=== PATIENT | female | born 1980 | race Caucasian/White ===

== ENCOUNTER 2017-01-17 15:19 | Emergency (ER) | payer OTHER ==
[~2017-01-17] VITALS: Ht 167.6 cm; Wt 76.0 kg
[~2017-01-17 15:19] MED LIST: CEPH-512 PO; GABA-502 PO; OXYC1TAB24 PO; SULF1TAB7 PO; TRAM50TA2 PO
[2017-01-17 15:22] VITALS: BP 122/77; PULSE 104; RESP 16; O2SAT 99
--- NOTE | 2017-01-17 15:31 | ED.REPORT ---
HPI-Dental/Mouth Prob Date of Service Jan 17, 2017 ED Provider: Ivan Garcia MD Pt is a 36 y.o. female who presents to the ED c/o worsening dental pain onset 4 months ago. Pt states that she has been attempting to get into [facility] for several months and they have not had any open appointments. She reports now experiencing associated migraines for which she was prescribed medication by her PCP. Nursing Notes Stated Complaint: TOOTH PAIN Chief Complaint: Dental Nursing Notes Reviewed: Yes Allergies: Coded Allergies: albuterol (Verified Allergy, Mild, 01/17/17) Scheduled Cephalexin (Keflex) 500 Mg Capsule 500 MG PO QID Gabapentin (Gabapentin) 300 Mg Capsule 600 MG PO TID Sulfamethoxazole/Trimeth 800-160 mg (Bactrim DS) 1 Each Tablet 1 TABLET PO BID Sulfamethoxazole/Trimeth 800-160 mg (Bactrim DS) 1 Each Tablet 1 TABLET PO BID Scheduled PRN Tramadol (Tramadol) 50 Mg Tablet 100 MG PO BID PRN PRN For Pain oxyCODONE (oxyCODONE) 5 Mg Capsule 5 MG PO Q4H PRN PRN For Pain oxyCODONE-Acetaminophen 5-325 mg (oxyCODONE-Acetaminophen 5-325 mg) 1 Each Tablet 1-2 TAB PO Q6H PRN PRN For Pain oxyCODONE-Acetaminophen 5-325 mg (oxyCODONE-Acetaminophen 5-325 mg) 1 Each Tablet 1-2 TAB PO Q6H PRN PRN For Pain General Time Seen by MD: 15:31 Chief Complaint Tooth pain Hx Obtained From: Patient Arrived By: Walk-in Onset Occurred: More than a week ago... (4 months) Symptom Duration: Since onset Quality: Painful Radiation: : Does not radiate Severity: Current: Severe Past Medical History Past Medical History Denies Past Surgical History Denies Smoking History Current Every Day Smoker Social History Alcohol Use: Denies alcohol use Drug Use: Denies drug use Ambulatory Status Independent Review of Systems Ears / Nose / Throat: Reports: Toothache Complete sys rev & neg: except as marked. Neurologic: Reports: Headache Physical Exam Initial Vital Signs Vital Signs (First) Date Time Temp Pulse Resp B/P Pulse Ox O2 Delivery O2 Flow Rate FiO2 01/17/17 15:22 36.8 104 16 122/77 99 Room Air Initial VS: Reviewed Head / Eyes: Atraumatic, Normocephalic Abdomen / GI: No distention Extremities: Vascular intact, Neuro intact Skin: Warm, Dry, No cyanosis Neurologic: Alert, Oriented, Nonfocal Psychiatric: Mood/affect normal, Behavior normal, Normal thought content ENT: Airway patent, Mucous membranes moist, Pharynx NL, No facial swelling Dental / Gums: Positive: Dental caries present (tooth 13), Negative: Dental abscess, Dentition poor Neck: Atraumatic General/Constitutional: Awake, Alert, Well appearing, Well developed, Well hydrated, Well nourished, Not toxic appearing Respiratory / Chest: Atraumatic, Breath sounds NL, Breath sounds = bilat, No respiratory distress, No rales, No rhonchi, No wheezing, No retractions, No stridor Cardiovascular: Heart rate NL, Regular rhythm, Heart sounds NL, No gallop, No murmurs, No rubs, Peripheral circulation NL Re-Eval/Medical Decision Med Decision/Clinical Course Pt is a 36 y.o. female who presents to the ED c/o worsening dental pain onset 4 months ago. Pt states that she has been attempting to get into [facility] for several months and they have not had any open appointments. She reports now experiencing associated migraines for which she was prescribed medication by her PCP but has not filled. Patient afebrile stable vital signs and examination as above. Overall presentation consistent with significant dental caries. I see no indication that antibiotics over this time change her course. She needs to see a dentist. I do believe that she is in significant pain and see no evidence of cardiac pain medication abuse in her history. I prescribed a limited supply of oxycodone and she will continue to use ibuprofen.Considered other possible causes of dental pain including periapical abscess, gingivitis, Kyle's angina, sinusitis, and molar impaction but these are unlikely based on the history and exam. Discussed with the patient the low cost clinic resources available and provided list on discharge. Also reviewed precautions for return to the ED and the importance of f/u with a dentist, which she agreed to do. Source of Hx: Old records Re-Evaluation/Progress : Time of Eval: 15:40 Re-Evaluation/Progress Note: Pt physical exam performed. Pt experiences tenderness upon palpation of tooth 13, rest of exam is normal. Counseled Regarding: Diagnosis Discharge & Departure Primary Impression: Dental caries Additional Impression: Pain, dental Disposition: Home Discharge Condition All VS Reviewed: Yes Condition: Stable Patient Instructions: Dental Caries (ED) Additional Instructions: You were seen here today for dental caries. It did not appear that you had an abscess. I recommend that you keep contacting Garcia to schedule an appointment. Please return if you have any new or worsening symptoms or have signs of infection. Thank you for entrusting us with your care today. Narcotic Pain Medicine You have been prescribed a narcotic for pain relief. These drugs are usually combined with acetaminophen (Tylenol#3, Percocet, Darvocet, Anexsia, Vicodin) or aspirin (Empirin#3, Percodan, Synalogs-DC) for increased effect. Narcotics act on the central nervous system to reduce pain; they also impair mental alertness and physical abilities. We advise you not to drink alcohol, drive a car, or operate dangerous equipment when you are taking theses drugs. You can lessen stomach irritation from your medicine by taking it with meals or a full glass of water. Common side effects of narcotics are: Nausea and vomiting, heartburn, consitpation, dizziness, sleepiness, and mood changes. If you have bothersome side effects or symptoms of an allergic reaction (itching, hives, rash), stop taking your medicine and call your doctor or the emergency room right away. Please keep your narcotic medicine well out of the reach of children. Referrals: [facility] GUO (PCP) Aishaibwilbert Attestation Portions of this note were transcribed by Catherine Chappell. I, Dr. Garcia personally performed the history, physical exam and medical decision-making; I reviewed and confirmed the accuracy of the information in the transcribed note. Signed by: Dennis Higgins, 01/17/17 and 1610. copies to: [facility] Beck O MD Jan 17, 2017 15:31 CATHERINE CHAPPELL Jan 17, 2017 15:41
[2017-01-17] MEDS ORDERED: OXYC5CAP4 PO (15:42)
== END 2017-01-17 15:54 | disposition home or self-care (01) ==
LOC: SED 15:19
DX: K02.9 Dental caries, unspecified (principal); K08.89 Other specified disorders of teeth and supporting structures; F17.200 Nicotine dependence, unspecified, uncomplicated; Z88.8 Allergy status to other drugs, medicaments and biological substances

== ENCOUNTER 2017-01-28 19:31 | Emergency (ER) | payer OTHER ==
[~2017-01-28] VITALS: Ht 167.6 cm; Wt 76.4 kg
[~2017-01-28 19:31] MED LIST changes: +OXYC5CAP4 PO
[2017-01-28 19:48] VITALS: BP 144/82; PULSE 111; RESP 20; O2SAT 97
--- NOTE | 2017-01-28 22:22 | ED.REPORT ---
HPI-Dental/Mouth Prob Date of Service Jan 28, 2017 ED Provider: Melissa Hendrix MD Patient is a 36 year old female who presents to the ED with left upper molar pain that has been worsening in severity over the past 4 months. Patient states that the nerve of the tooth is exposed and that it now hurts to brush her teeth. She is barely able to eat or drink. Patient reports associated swelling in her mouth. Patient states that she has been unsuccessful in obtaining a dental appointment over the past 2 months. The patient is prescribed Tramadol, but she states that this medication causes her to have seizure. The patient states that the tooth pain causes her to have migraines and she has needed to use more of her migraine medication than she usually does. Patient reports associated swelling of her mouth. Patient was seen in the ED on 01/17 for this complaint, prescribed narcotic pain medication, and instructed to follow-up at [facility]. She reports taking Ibuprofen, Tylenol, clove oil, and a temporary filling without relief of symptoms. Patient denies a fever or chills. Nursing Notes Stated Complaint: TOOTH PAIN Chief Complaint: Dental Nursing Notes Reviewed: Yes Allergies: Coded Allergies: acetaminophen (Verified Allergy, Mild, 01/28/17) albuterol (Verified Allergy, Mild, 01/17/17) hydrocodone (Verified Allergy, Mild, 01/28/17) Scheduled Cephalexin (Keflex) 500 Mg Capsule 500 MG PO QID Gabapentin (Gabapentin) 300 Mg Capsule 600 MG PO TID Penicillin V Potassium (Penicillin V Potassium) 500 Mg Tablet 500 MG PO QID Sulfamethoxazole/Trimeth 800-160 mg (Bactrim DS) 1 Each Tablet 1 TABLET PO BID Sulfamethoxazole/Trimeth 800-160 mg (Bactrim DS) 1 Each Tablet 1 TABLET PO BID Scheduled PRN Tramadol (Tramadol) 50 Mg Tablet 100 MG PO BID PRN PRN For Pain oxyCODONE (oxyCODONE) 5 Mg Capsule 5 MG PO Q4H PRN PRN For Pain oxyCODONE-Acetaminophen 5-325 mg (oxyCODONE-Acetaminophen 5-325 mg) 1 Each Tablet 1-2 TAB PO Q6H PRN PRN For Pain oxyCODONE-Acetaminophen 5-325 mg (oxyCODONE-Acetaminophen 5-325 mg) 1 Each Tablet 1-2 TAB PO Q6H PRN PRN For Pain General Time Seen by MD: 22:19 Chief Complaint Tooth pain Hx Obtained From: Patient Arrived By: Walk-in Onset Occurred: More than a week ago... (4 months) Symptom Duration: Since onset Quality: Painful Severity: Current: Severe Severity: Maximum: Severe Recent Healthcare: Recent doctor visit Similar Sx Previous: Yes Past Medical History Past Medical History seizures Past Surgical History Denies Smoking History Current Every Day Smoker Social History Alcohol Use: Denies alcohol use Drug Use: Denies drug use Other Social History: Good social support, Local resident Ambulatory Status Independent Review of Systems Review of Systems Note: + mouth swelling Constitutional: Denies: Chills, Fever Ears / Nose / Throat: Reports: Mouth pain, Toothache Complete sys rev & neg: except as marked. Neurologic: Reports: Headache Physical Exam Initial Vital Signs Vital Signs (First) Date Time Temp Pulse Resp B/P Pulse Ox O2 Delivery O2 Flow Rate FiO2 01/28/17 19:48 36.2 111 20 144/82 97 Room Air Initial VS: Reviewed Extremities: Vascular intact, Neuro intact Skin: Warm, Dry, No cyanosis Neurologic: Alert, Oriented, Nonfocal Psychiatric: Mood/affect normal, Behavior normal, Normal thought content ENT: Airway patent, Pharynx NL Soft sublingual and submental spaces. Controlling secretions well. Exquisite tenderness with percussion to the left maxillary premolar with obvious caries to the molar. No fluctuance. Neck: Supple, No swelling, Non-tender General/Constitutional: Awake, Alert, No acute distress Head / Eyes: Atraumatic, Normocephalic, PERRL Respiratory / Chest: Breath sounds NL, Breath sounds = bilat, No respiratory distress, No rales, No rhonchi, No wheezing Cardiovascular: Heart rate NL, Regular rhythm, Heart sounds NL, No murmurs Interpretation & Diagnostics Interpretation & Diagnostics: Urine Test: Negative. Re-Eval/Medical Decision Med Decision/Clinical Course 36-year-old female here with dental pain. Differential diagnosis includes but is not limited to dental abscess versus gingivitis versus dental caries versus cracked tooth. Exam is consistent with dental abscess. Patient was given penicillin and advised to take ibuprofen at home. She is aware and amenable to discharge and will follow up with her dentist. She has been given very strict return precautions. Source of Hx: Old records Re-Evaluation/Progress : Time of Eval: 23:16 Patient Status: Condition improved Re-Evaluation/Progress Note: Patient understands and agrees with the plan to be discharged home. Discharge instructions and follow-up discussed. All questions were addressed. Return to the ED warnings given. Counseled Regarding: Diagnosis, Need for follow-up, When/why to return to ED Discharge & Departure Primary Impression: Dental caries Disposition: Home Discharge Condition All VS Reviewed: Yes Condition: Stable Patient Instructions: Dental Caries (ED) Additional Instructions: You have been prescribed Penicillin for your dental infection, take as directed. Take Ibuprofen 800mg every 8 hours as needed for pain. It is very important that you follow-up with a dentist as soon as possible. Follow-up with your doctor in the next 1-2 days. Return to the Emergency Department if you develop worsening tooth pain, swelling of your mouth or throat, fever, or any other concerning symptoms. Your blood pressure was elevated in the emergency department today. You should follow-up with your primary care physician regarding your high blood pressure. You may need to be started on medication to manage your blood pressure. Referrals: Anatoliy Agrawal DO (PCP) Dennis Attestation Portions of this note were transcribed by Nighat Medina. I, Dr. Hendrix personally performed the history, physical exam and medical decision-making; I reviewed and confirmed the accuracy of the information in the transcribed note. Signed by: Dennis Call, 01/28/2017 [id number] copies to: Anatoliy Agrawal Rebecca A MD Jan 28, 2017 22:22 Nighat Medina Jan 28, 2017 22:40
[2017-01-28] MEDS ORDERED: PENI500T PO (23:08)
== END 2017-01-28 23:50 | disposition home or self-care (01) ==
LOC: SED 19:31
DX: K02.9 Dental caries, unspecified (principal); F17.200 Nicotine dependence, unspecified, uncomplicated; Z88.5 Allergy status to narcotic agent; Z88.6 Allergy status to analgesic agent; Z88.8 Allergy status to other drugs, medicaments and biological substances

== ENCOUNTER 2017-06-19 10:20 | Emergency (ER) | payer OTHER ==
[~2017-06-19] VITALS: Ht 170.2 cm; Wt 76.4 kg
[~2017-06-19 10:20] MED LIST changes: +PENI500T PO
[2017-06-19 10:25] VITALS: BP 134/80; PULSE 122; RESP 18; O2SAT 98
[2017-06-19] MEDS ORDERED: 0.9% Sodium Chloride 1,000 ML IV ONE ×2 (11:28→12:55)
[2017-06-19] MEDS ORDERED: Ondansetron 2 mg/mL 2 mL Inj IVPUSH ONE (11:30)
--- NOTE | 2017-06-19 11:38 | ED.REPORT ---
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 Patient states she was walking in the [place] 3 days ago when she felt a bite on her left lower leg. She brushed it and did not observe an animal or insect. She did note a single puncture wound. She reports that within several hours there was a surrounding area of redness which spread steadily across her lower leg. Last night she noted an area of crusting near the bite which she removed and has since expanded, becoming productive of purulent discharge. Admits to palpitations, tightness in her chest, vomiting which she reports has been typical for her as well as burning with urination which predated the injury. Denies fever, shaking chills, chest pain, shortness of breath, abdominal pain, diarrhea, melena, hematochezia, headache, denies vaginal bleeding/discharge. Denies history of diabetes. 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 Nursing Notes Stated Complaint: SPIDER BITE Chief Complaint: Skin Rash/Abscess Nursing Notes Reviewed: Yes Allergies: Coded Allergies: acetaminophen (Verified Allergy, Mild, 01/28/17) albuterol (Verified Allergy, Mild, 01/17/17) hydrocodone (Verified Allergy, Mild, 01/28/17) Scheduled Cephalexin (Keflex) 500 Mg Capsule 500 MG PO QID Clindamycin (Clindamycin) 300 Mg Capsule 300 MG PO QID Gabapentin (Gabapentin) 300 Mg Capsule 600 MG PO TID Penicillin V Potassium (Penicillin V Potassium) 500 Mg Tablet 500 MG PO QID Sulfamethoxazole/Trimeth 800-160 mg (Bactrim DS) 1 Each Tablet 1 TABLET PO BID Sulfamethoxazole/Trimeth 800-160 mg (Bactrim DS) 1 Each Tablet 1 TABLET PO BID Scheduled PRN Tramadol (Tramadol) 50 Mg Tablet 100 MG PO BID PRN PRN For Pain oxyCODONE (oxyCODONE) 5 Mg Capsule 5 MG PO Q4H PRN PRN For Pain oxyCODONE-Acetaminophen 5-325 mg (oxyCODONE-Acetaminophen 5-325 mg) 1 Each Tablet 1-2 TAB PO Q6H PRN PRN For Pain oxyCODONE-Acetaminophen 5-325 mg (oxyCODONE-Acetaminophen 5-325 mg) 1 Each Tablet 1-2 TAB PO Q6H PRN PRN For Pain General Time Seen by MD: 11:09 Chief Complaint Other (suspected bite) Past Medical History Past Medical History seizures Past Surgical History Denies Smoking History Current Every Day Smoker Social History Alcohol Use: Denies alcohol use Drug Use: Denies drug use Other Social History: Good social support, Local resident Ambulatory Status Independent Review of Systems Review of Systems Note: Negative unless stated otherwise in history of present illness Physical Exam General: Well appearing, well developed, well nourished, no acute distress. Left leg: Left calf notably larger than right, redness and swelling to the mid calf, 1 cm ulcer located on the lateral anterior lower leg. Purulent discharge is noted initially and sampled for culture, once wiped away no additional purulence can be expressed. No area of fluctuance is noted. Range of motion in ankle appears to be limited by swelling. Sensation and brisk capillary refill intact in distal phalanges. DP and PT pulses 2+. Head: Atraumatic, normocephalic. Eyes: No scleral icterus or injection. No discharge. Vision grossly intact. ENT: Voice clear, hearing grossly intact. Respiratory: Regular rate and rhythm. Breath sounds present, clear to auscultation and equal bilaterally. No respiratory distress. No increased work of breathing, speaks in complete sentences. Cardiovascular: Tachycardic with regular rhythm, without murmur, gallop or rub. No pedal edema. Skin: Warm and dry. Neurological: Grossly nonfocal. Psychological: Alert and oriented. Speech appropriate, linear and logical. Behavior appropriate. Initial Vital Signs Vital Signs (First) Date Time Temp Pulse Resp B/P Pulse Ox O2 Delivery O2 Flow Rate FiO2 06/19/17 10:25 37.2 122 18 134/80 98 Room Air Tachycardia Interpretation & Diagnostics Lab Results Interpretation Result Diagram: 06/19/17 1130 06/19/17 1130 Test 06/19/17 11:30 06/19/17 14:13 White Blood Count 8.1th/mm3 (3.8-10.1) Red Blood Count 3.84mil/mm3 (3.90-5.20) Hemoglobin 11.5g/dL (12.0-15.6) Hematocrit 35.0% (35.0-46.0) Mean Corpuscular Volume 91.1fL (81-100) Mean Corpuscular Hemoglobin 29.9pg (27.0-35.0) Mean Corpuscular Hemoglobin Concent 32.9% (32.0-37.0) Red Cell Distribution Width 12.6% (12.3-15.4) Platelet Count 304bil/L (150-400) Neutrophils (%) (Auto) 72.2% (40-74) Lymphocytes (%) (Auto) 18.6% (14-46) Monocytes (%) (Auto) 6.9% (4-12) Eosinophils (%) (Auto) 2.0% (0-5) Basophils (%) (Auto) 0.2% (0-3) Sodium Level 137mEq/L (134-144) Potassium Level 3.8mEq/L (3.5-5.2) Chloride Level 98mEq/L (97-108) Carbon Dioxide Level 27mmol/L (18-29) Blood Urea Nitrogen 12mg/dL (6-20) Creatinine 0.57mg/dL (0.57-1.00) Estimat Glomerular Filtration Rate 173mL/min (>59) Glucose Level 93mg/dL (60-99) Calcium Level 9.2mg/dL (8.5-10.1) Total Bilirubin 1.4mg/dL (0.0-1.2) Aspartate Amino Transf (AST/SGOT) 18U/L (0-50) Alanine Aminotransferase (ALT/SGPT) 14U/L (0-32) Alkaline Phosphatase 81U/L (25-150) Total Creatine Kinase 79U/L (21-215) Creatine Kinase MB 1.5ng/mL (0.0-5.3) Creatine Kinase MB % % (0.0-5.0) Total Protein 7.5g/dL (6.4-8.4) Albumin 3.9g/dL (3.4-5.0) HCG Beta Subunit < 0.500mIU/mL Urine Color Yellow (YELLOW) Urine Appearance Clear (CLEAR,HAZY) Urine pH 6.0 (5.0-8.0) Urine Specific [place] 1.015 (1.003-1.035) Urine Protein Negativemg/dL (NEG,TRACE) Urine Glucose (UA) Negativemg/dL (NEGATIVE) Urine Ketones Negativemg/dL (NEGATIVE) Urine Occult Blood Negative (NEGATIVE) Urine Nitrite Negative (NEGATIVE) Urine Bilirubin Negative (NEGATIVE) Urine Urobilinogen Normalmg/dL (NORMAL) Urine Leukocyte Esterase Negative (NEGATIVE) Urine RBC 0-2/hpf (0-2) Urine WBC 0-5/hpf (0-5) Urine Epithelial Cells Few/hpf (NONE-MOD) Urine Crystals None seen (NONE SEEN) Urine Bacteria Few/hpf (NONE-FEW) Urine Hyaline Casts None/lpf (NONE) Urine Granular Casts None seen (NONE SEEN) Urine Waxy Casts None seen (NONE SEEN) Urine Red Blood Cell Casts None seen (NONE SEEN) Urine White Blood Cell Casts None seen (NONE SEEN) Urine Mucus Present (None Seen) Urine Trichomonas None seen (NONE SEEN) Urine Yeast None (NONE SEEN) Urinalysis Comment None Urine Culture Reflexed Not indicated Re-Eval/Medical Decision Med Decision/Clinical Course 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 At the time she noted a single puncture wound but did not observe an insect. Redness developed and spread over the lower limb, she developed an ulcer at the bite site last night. Complains of pain in the leg, heart palpitations, tightness in her chest. Admits to vomiting which she attributes to morning sickness as well as dysuria which predated the injury. On physical examination left lower leg is notably red and swollen with a 1 cm ulcer producing purulent discharge on the lateral anterior lower leg. There is no area of fluctuance and additional purulent cannot be expressed from the ulcer. Neurovascularly intact distal. The patient is tachycardic but afebrile. Treatment is initiated with 1 L normal saline, half milligram Dilaudid. CBC, CMP and blood cultures are drawn, urine collected, culture from the wound is sent for evaluation. Labs returned unremarkable. Urinalysis is normal. Creatinine kinase is normal. Notably, 2 urine tests are negative. A beta hCG Quant is ordered which returns negative. Patient is quite sad to hear this news. She does recall an episode of vaginal bleeding roughly 1 week ago. I discussed this with Dr. Beck, who feels that RhoGAM should be deferred at this time. This point we are reassured against sepsis, rhabdomyolysis. Patient is stable and safe to be discharged to home with prescription for clindamycin. Tachycardia noted in triage has resolved. Advise primary care follow-up and for emergent return precautions. Patient verbalizes understanding of and consent to the plan. Discharge & Departure Impression: Primary Impression: Cellulitis Site of cellulitis: extremity Site of cellulitis of extremity: lower extremity Laterality: left Qualified Code: L03.116 - Cellulitis of left lower limb Additional Impression: Insect bite Encounter type: initial encounter Qualified Code: W57.XXXA - Bitten or stung by nonvenomous insect and other nonvenomous arthropods, initial encounter Disposition: Home Discharge Condition All VS Reviewed: Yes Condition: Stable Patient Instructions: Cellulitis (ED) Additional Instructions: Evaluation in the emergency department for a possible spider bite includes interview, physical examination blood tests. These all indicate that you have a skin infection, likely caused by an insect bite of some kind. Tests are reassuring against systemic infection or rhabdomyolysis. We have given you 1 dose of IV clindamycin here in the emergency department. I will provide you with a prescription for oral clindamycin to be taken for the next 7 days. Please be sure to take every dose. The pain is best treated with 600 mg of ibuprofen (Advil, Motrin) every 6 hours , or 1000 mg of acetaminophen (Tylenol) every 6 hours. These drugs can be taken at the same time for more severe pain. Keep the foot elevated as much as possible, and apply ice 2-3 times a day. I am sorry to tell you that the test performed in the emergency department today were negative. Please follow up with your primary care provider early next week to assess the progress of your recovery and address your negative test. Referrals: Anatoliy Agrawal DO (PCP) EDSupervising Provider for APC: Tanner Beck MD Attending Statement Schedule patient with YANDEL Lugo. I evaluated the patient independently and agree with plan as above. In brief 36-year-old female with left ankle insect bite. Mild surrounding erythema. Her labs are unremarkable. There is no evidence of rhabdomyolysis or kidney failure. She is discharged on oral antibiotics with wound care and counseling plans to keep wound clean and dry. Follow-up with primary doctor 2 days for reevaluation and return precautions given if any new or worsening symptoms. copies to: Anatoliy Agrawal Seth PA-C Jun 19, 2017 11:38 Tanner Beck MD Jun 19, 2017 18:00
[2017-06-19 11:53] LABS: BASOPHILS % (AUTO) 0.2 % (0-3); MONOCYTES % (AUTO) 6.9 % (4-12); Mean Corpuscular Hemoglobin 29.9 pg (27.0-35.0); Mean Corpuscular Volume 91.1 fL (81-100); NEUTROPHILS % (AUTO) 72.2 % (40-74); Platelet Count 304 bil/L (150-400)
[2017-06-19] MEDS: HYDROmorphone 0.5 mg/0.5 mL iSecure Syringe IVPUSH PRN ×2 (11:55→12:42)
[2017-06-19] MEDS ORDERED: Clindamycin Inj 600 MG in IV Premix 1 EACH IV ONE (12:30)
[2017-06-19 13:35] LABS: Creatine Kinase 79 U/L (21-215)
[2017-06-19 13:50] VITALS: BP 123/83; PULSE 105; RESP 16; O2SAT 99
[2017-06-19 14:32] LABS: APPEARANCE,URINE CLEAR (CLEAR,HAZY); COLOR,URINE YELLOW (YELLOW); OCCULT BLOOD,URINE NEGATIVE (NEGATIVE); UROBILINOGEN,URINE NORMAL (NORMAL)
[2017-06-19] MEDS ORDERED: CLIN-78 PO (14:49)
[2017-06-19 14:56] VITALS: BP 123/83; PULSE 97; RESP 16; O2SAT 99
== END 2017-06-19 14:56 | disposition home or self-care (01) ==
LOC: SED 10:20
DX: L03.116 Cellulitis of left lower limb (principal); W57.XXXA Bitten or stung by nonvenomous insect and other nonvenomous arthropods, initial encounter; Y93.01 Activity, walking, marching and hiking; Y92.828 Other wilderness area as the place of occurrence of the external cause; Y99.8 Other external cause status; F17.200 Nicotine dependence, unspecified, uncomplicated; Z88.5 Allergy status to narcotic agent; Z88.8 Allergy status to other drugs, medicaments and biological substances
CPT/HCPCS: 36415; 80053; 81000; 82550; 82553; 84702; 85025; 87040; 87070; 87075; 87186; 87205; 96361; 96365; 96375; 99285; J1170; J7030